=== PATIENT | female | born 1935 | race Caucasian/White ===

== ENCOUNTER 2016-12-24 06:41 | Day surgery (SDC) | payer OTHER ==
[~2016-12-24] VITALS: Ht 172.7 cm; Wt 75.8 kg
--- NOTE | ~2016-12-24 | O ---
[facility] [place] [address] OPERATIVE REPORT Name: MYRANDA LINK Room #: DEP [facility] M..#: [id number] Admission: 12/24/16 Attend Phys: Filemon Carrizales MD Discharge: 12/24/16 Date of : 31 Report #: [id number] THIS REPORT FOR: //name// CC: Asher Wade MD FAM unknown Susanna Ajit Carrizales PREOPERATIVE DIAGNOSIS: Right orbital floor fracture. POSTOPERATIVE DIAGNOSIS: Right orbital floor fracture. PROCEDURE: Right transconjunctival orbitotomy with repair of floor fracture with 0.85-mm Medpor sheeting. SURGEON: Filemon Carrizales M.D. COORDINATING PRODUCER: None. ANESTHESIA: General. COMPLICATIONS: None. INDICATIONS FOR SURGERY: This pleasant 81-year-old woman has a large right orbital floor fracture. She presents today for a transconjunctival orbitotomy with repair of that defect. An informed consent was obtained to include but not limited to the potential risk for loss of vision, bleeding, infection, failure to improve the problem, double vision, and the potential need for further surgery or treatment. DESCRIPTION OF PROCEDURE: The patient was taken to the operating room, where general anesthesia was administered. The right lateral canthus and the right inferior orbit were then anesthetized with Xylocaine with epinephrine, mixed with Marcaine and Wydase. She had received intravenous antiemetics and antibiotics at the beginning of the case. After being sterilely prepped and draped, a traction suture was placed around the insertion site of the right inferior rectus muscle, just posterior to the attachment to the globe. This was tied with #1 double throw. The right lateral canthus was then clamped with a López clamp. A sharp canthotomy and cantholysis was then performed. A transconjunctival incision was then made below the inferior border of the tarsal plate across the width of the lid. The lower lid retractors and the conjunctiva were then grasped with a pass from a double arm 5-0 black silk suture. This was then secured to the drape for traction. [facility] [address] [place] [address] OPERATIVE REPORT Name: RAHEEM LINKH Room #: DEP [facility] M.Haroon.#: [id number] Admission: 12/24/16 Attend Phys: Filemon Carrizales MD Discharge: 12/24/16 Date of : 31 Report #: [id number] The dissection was then carried down in the preseptal plane on to the anterior surface of the maxilla. The periosteum of the inferior orbit was then incised across the anterior surface of the maxilla and subsequently dissected bluntly with a [place] periosteal elevator. Ikbu-fvmw-lzpo techniques were used without any sharp dissection of the orbit, as the orbital soft tissues were retracted back up into the orbit. The fracture as expected was quite large. It extended lateral to the inferior orbital neurovascular bundle and medially to the strut. With gentle dissection and multiple attempts over time, the orbital contents were able to be drawn back up into the orbit in the fracture as it were reduced per se. A 0.85-mm sheet of Medpor was then brought into the field. It was then soaked in antibiotic irrigation solution. The Medpor sheeting was then cut in such a manner to allow to repair the defect, being shelved laterally and medially by remaining bony structures and anteriorly and posteriorly. The posterior attachment was the shortest. The traction suture on the lower lid retractors was then released and forced ductions were performed. There was no evidence of any restriction. The periosteum was then closed over the implant with interrupted 5-0 Vicryl sutures. The lower lid retractors were then reposited into the inferior fornix. The tarsal strip was then secured to the internal portion of the lateral orbital tubercle with interrupted 5-0 Prolene suture. The skin was then closed with interrupted 6-0 plain gut sutures. Maxitrol drops were then placed on the eye and erythromycin ophthalmic ointment on the sutures. The patient was subsequently transported to the recovery area, having tolerated the procedures well with no anesthetic or operative complications being noted. <ELECTRONICALLY SIGNED> By: Filemon Carrizales MD 12/28/16 0611 [id number] [id number] Filemon Carrizales MD /nt
[~2016-12-24 06:41] MED LIST: ASPIR 8181 MG PO; CALCIUM 600 +1 EAC1 PO; DIOVAN 80 MG TA80 M1 PO; HYDROCHLOROTH12.5 M2 PO; KEPPRA 500 MG500 M1 PO; LOPRESSOR50 PO; MULTIVITAMINS1 EAC7 PO; PREMARIN0.625 MG PO; PRILOSEC 20 MG20 MG PO; VITAMINC500 PO; ZOCOR20 MG PO
[2016-12-24 10:36] VITALS: BP 146/66
== END 2016-12-24 13:05 | disposition home or self-care (01) ==
LOC: OR 06:41 → TBA 06:42 → OR 08:25
DX: S02.31XA Fracture of orbital floor, right side, initial encounter for closed fracture (principal); I10 Essential (primary) hypertension; M19.90 Unspecified osteoarthritis, unspecified site; E78.00 Pure hypercholesterolemia, unspecified; K21.9 Gastro-esophageal reflux disease without esophagitis; Z87.442 Personal history of urinary calculi; Z90.710 Acquired absence of both cervix and uterus; Z98.41 Cataract extraction status, right eye; Z98.42 Cataract extraction status, left eye; Z96.1 Presence of intraocular lens; Z98.890 Other specified postprocedural states; Z96.642 Presence of left artificial hip joint; X58.XXXA Exposure to other specified factors, initial encounter; Y93.89 Activity, other specified; Y92.89 Other specified places as the place of occurrence of the external cause; Y99.8 Other external cause status
CPT/HCPCS: 50010; 50101; 50386; 50398; 51369; 51636; 56524; 56527; 56528; 56531; 62110; 62900; 70005